=== PATIENT | male | born 1945 | race Caucasian/White ===

== ENCOUNTER 2022-09-01 16:38 | Inpatient (IN) | payer MEDICARE, MEDICAID ==
[2022-09-01] MEDS ORDERED: NOREPINEPHRINE 8 MG/250 ML-D5W 250 ML ONE (16:47)
[2022-09-01] MEDS ORDERED: Heparin 10,000 UNITS/ 10 ML VIAL ONE (16:50)
[2022-09-01] MEDS ORDERED: Aspirin 300 MG Suppository ONE (16:59)
[2022-09-01] MEDS ORDERED: Fentanyl 100 MCG/2 ML VIAL ONE ×2 (17:04→17:12)
[2022-09-01] MEDS ORDERED: Nitroglycerin 100MG/250ML BOT 0 ML ONE (17:04)
[2022-09-01] MEDS ORDERED: Lidocaine 1% (PF) 30 ML VIAL ONE (17:05)
[2022-09-01 17:06] LABS: Actual Bicarbonate (HCO3a) 26.4 mEq/L (22-28); Analyzer IN Cardio ER; Base Excess (BEa) 2.2 mEq/L (-2.0 to +3.0); CO2 Tension 39.6 mmHg (35.0-45.0); Calcium, Ionized (arterial) 1.08 mmol/L (1.12-1.30); Carboxyhemoglobin (COHb) 0.7 gm% (0.0-3.0); O2 Tension (PaO2), arterial 70.2 mmHg (> 70.0); Potassium - ABG Lab 4.29 mmol/L (3.70-5.30); pH, Arterial 7.44 (7.35-7.45)
[2022-09-01 17:07] LABS: Puncture Site RRA
[2022-09-01] MEDS ORDERED: Cefepime 2 GM VIAL ONE (17:10)
[2022-09-01] MEDS ORDERED: Midazolam HCl 2 mg/2 ml Vial ONE (17:12)
[2022-09-01] MEDS ORDERED: Fentanyl CADD 100 ML IV SCH (17:30)
[2022-09-01] MEDS ORDERED: Silver Nitrate Application 1 EACH ONE (17:32)
[2022-09-01 17:42] LABS: #Eosinphils 0.2 thou/uL (0.0-0.7); #Lymphocytes 1.7 thou/uL (1.20-3.40); #Monocytes 0.8 thou/uL (0.11-0.59); #Neutrophils 12.4 thou/uL (1.40-6.50); %Basophils 0.2 % (0.0-1.0); %Eosinophils 1.2 % (0.0-10.0); %Lymphocytes 11.1 % (21.0-51.0); %Monocytes 5.2 % (0.0-10.0); %Neutrophils 82.3 % (42.0-75.0); Hemoglobin 12.6 g/dL (14.0-18.0); Mean Corpuscular HGB CONC 31.8 g/dL (32.0-36.0); Mean Corpuscular Hemoglobin 32.8 pg (27.0-31.0); Mean Platelet Volume 6.4 fL (7.4-10.4); Platelet Count 296 10x3/uL (130-400); RBC Distribution Width 12.7 % (11.5-14.5); Red Blood Cell (RBC) Count 3.85 mill/uL (4.70-6.10)
[2022-09-01] MEDS ORDERED: LORazepam 2 MG/ML SYR.(CARPUJECT) ONE (17:43)
[2022-09-01 17:54] LABS: INR-International Normal Ratio 1.2; Prothrombin Time 15.5 sec (12.0-14.7)
[2022-09-01] MEDS ORDERED: Propofol 1,000 MG/100 ML VIAL IV ONE (17:54)
[2022-09-01 17:58] LABS: ALT (SGPT) 15 U/L (8-55); AST (SGOT) 16 U/L (5-34); Albumin 2.9 g/dL (3.4-4.8); Alkaline Phosphatase 97 U/L (40-110); Anion Gap 12 mmol/L (10-20); BUN (Urea Nitrogen) 13 mg/dL (8.4-25.7); Bilirubin, Total 0.3 mg/dL (0.2-1.2); Calc. Creatinine Clearance 0 mL/min (70-130); Calcium 7.9 mg/dL (7.8-10.44); Carbon Dioxide 29 mmol/L (23-31); Chloride 94 mmol/L (98-107); Estimated GFR 101; Globulin 3.3 g/dL (2.4-3.5); Glucose 127 mg/dL (83-110); Lipase 160 U/L (8-78); Magnesium 1.6 mg/dL (1.6-2.6); Potassium 4.2 mmol/L (3.5-5.1); Protein, Total 6.2 g/dL (5.8-8.1); Sodium 131 mmol/L (136-145)
[2022-09-01 18:25] LABS: SARS-CoV-2 NAA Rapid Test Not Detected (NotDetected)
[2022-09-01] MEDS ORDERED: Heparin 25,000 units/D5W 500 ML IVPB SCH (18:30)
[2022-09-01] MEDS ORDERED: Heparin 10,000 UNITS/ 10 ML VIAL SLOW IVP SCH (18:30)
[2022-09-01 18:32] LABS: CKMB 4.1 ng/mL (0-6.6)
[2022-09-01] MEDS ORDERED: Vancomycin 1 GM in Premix Bag 1 BAG IVPB SCH (18:45)
[2022-09-01] MEDS ORDERED: Propofol BOLUS 1,000 MG/100 ML VIAL IV PRN (19:00)
[2022-09-01] MEDS ORDERED: Morphine CADD 100 ML IVPB SCH (19:00)
[2022-09-01] MEDS ORDERED: DISCONTINUE PREVIOUS NARCOTIC PAIN MEDICATIONS AND BENZODIAZEPINES FS SCH (19:00)
[2022-09-01] MEDS ORDERED: Electrolyte Replacement Protocol 1 EACH IVPB PRN (19:30)
[2022-09-01] MEDS ORDERED: Acetaminophen 650 MG Suppository PR PRN (19:30)
[2022-09-01] MEDS ORDERED: NOREPINEPHRINE 8 MG/250 ML-D5W 250 ML IVPB PRN (19:30)
[2022-09-01] MEDS ORDERED: Acetaminophen 325 MG TAB PO PRN (19:30)
[2022-09-01] MEDS ORDERED: Ondansetron PF 4 MG/2 ML Vial IVP PRN (19:30)
[2022-09-01] MEDS: carBAMazepine SR 300 mg Capsule PO SCH (20:32)
[2022-09-01] MEDS: Sodium Chloride 0.9% 1,000 ML IV SCH (20:33)
[2022-09-01] MEDS: busPIRone HCl 10 MG TAB PO SCH (20:38)
[2022-09-01 21:08] LABS: Lactic Acid 5.1 mmol/L (0.5-2.2)
[2022-09-01 22:01] LABS: Troponin I 1.085 ng/mL (< 0.028)
[2022-09-01] MEDS ORDERED: Sodium Chloride 0.9% 500 ML IVPB SCH (22:30)
[2022-09-02 02:23] LABS: #Eosinphils 0.2 thou/uL (0.0-0.7); #Lymphocytes 1.3 thou/uL (1.20-3.40); #Monocytes 0.8 thou/uL (0.11-0.59); %Basophils 0.2 % (0.0-1.0); %Eosinophils 1.2 % (0.0-10.0); %Monocytes 5.5 % (0.0-10.0); %Neutrophils 84.2 % (42.0-75.0); Hemoglobin 12.1 g/dL (14.0-18.0); Mean Corpuscular HGB CONC 32.7 g/dL (32.0-36.0); Mean Corpuscular Hemoglobin 33.1 pg (27.0-31.0); Mean Platelet Volume 6.2 fL (7.4-10.4); Platelet Count 229 10x3/uL (130-400); RBC Distribution Width 12.7 % (11.5-14.5); Red Blood Cell (RBC) Count 3.65 mill/uL (4.70-6.10); White Blood Cell (WBC) Count 14.2 10x3/uL (4.8-10.8)
[2022-09-02 02:38] LABS: Lactic Acid 2.3 mmol/L (0.5-2.2)
[2022-09-02 03:31] LABS: Anion Gap 14 mmol/L (10-20); BUN (Urea Nitrogen) 18 mg/dL (8.4-25.7); Calc. Creatinine Clearance 227 mL/min (70-130); Calcium 7.7 mg/dL (7.8-10.44); Carbon Dioxide 27 mmol/L (23-31); Chloride 96 mmol/L (98-107); Estimated GFR 103; Glucose 107 mg/dL (83-110); Potassium 4.4 mmol/L (3.5-5.1); Sodium 133 mmol/L (136-145)
[2022-09-02] MEDS: Cefepime 2 GM in Sodium Chloride 0.9% 100 ML IVPB SCH ×2 (05:08→16:38)
[2022-09-02] MEDS: Levothyroxine 150 MCG TAB PO SCH (05:08)
[2022-09-02] MEDS: Propofol 1,000 MG/100 ML VIAL IV PRN ×4 (05:12→21:57)
[2022-09-02 06:49] LABS: Magnesium 1.7 mg/dL (1.6-2.6)
[2022-09-02] MEDS ORDERED: Magnesium 2 GM/50 ML(in water) 2 GM in Premix Bag 1 BAG IVPB SCH (08:00)
[2022-09-02] MEDS: Sodium Chloride 0.9% 1,000 ML IV SCH ×2 (08:23→21:57)
[2022-09-02] MEDS: busPIRone HCl 10 MG TAB PO SCH ×2 (08:50→20:38)
[2022-09-02] MEDS: Aspirin 300 MG Suppository PR SCH ×2 (08:50→11:06)
[2022-09-02] MEDS: VANCOMYCIN 2 GRAM/500 ML BAG 2 GM in Premix Bag 1 BAG IVPB SCH ×2 (08:50→20:36)
[2022-09-02] MEDS: carBAMazepine SR 300 mg Capsule PO SCH ×3 (08:50→20:35)
[2022-09-02] MEDS ORDERED: FLU VACC QS2022-23(65YR UP)/PF 240 MCG/0.7 ML SYRINGE IM ONE (09:00)
[2022-09-02 09:36] LABS: Troponin I 2.017 ng/mL (< 0.028)
[2022-09-02] MEDS ORDERED: Aspirin 325 mg Enteric Coated Tablet PO SCH (09:45)
[2022-09-02] MEDS: Heparin 5,000 UNITS/ML VIAL SC SCH (20:35)
[2022-09-02] MEDS: Famotidine/PF 20 mg/2ml Vial SLOW IVP SCH (20:36)
[2022-09-03] MEDS: Propofol 1,000 MG/100 ML VIAL IV PRN ×2 (03:44→05:27)
[2022-09-03 05:14] LABS: #Eosinphils 0.5 thou/uL (0.0-0.7); #Lymphocytes 1.3 thou/uL (1.20-3.40); #Monocytes 0.6 thou/uL (0.11-0.59); #Neutrophils 10.2 thou/uL (1.40-6.50); %Basophils 0.4 % (0.0-1.0); %Eosinophils 3.7 % (0.0-10.0); %Lymphocytes 10.5 % (21.0-51.0); %Neutrophils 80.3 % (42.0-75.0); Hemoglobin 11.6 g/dL (14.0-18.0); Mean Corpuscular HGB CONC 32.6 g/dL (32.0-36.0); Mean Corpuscular Hemoglobin 32.7 pg (27.0-31.0); Mean Platelet Volume 6.4 fL (7.4-10.4); Platelet Count 239 10x3/uL (130-400); RBC Distribution Width 12.7 % (11.5-14.5); Red Blood Cell (RBC) Count 3.55 mill/uL (4.70-6.10); White Blood Cell (WBC) Count 12.7 10x3/uL (4.8-10.8)
[2022-09-03] MEDS: Levothyroxine 150 MCG TAB PO SCH (05:23)
[2022-09-03] MEDS: Cefepime 2 GM in Sodium Chloride 0.9% 100 ML IVPB SCH (05:23)
[2022-09-03 05:41] LABS: ALT (SGPT) 12 U/L (8-55); AST (SGOT) 15 U/L (5-34); Albumin 2.6 g/dL (3.4-4.8); Alkaline Phosphatase 89 U/L (40-110); Anion Gap 10 mmol/L (10-20); BUN (Urea Nitrogen) 11 mg/dL (8.4-25.7); Bilirubin, Total 0.4 mg/dL (0.2-1.2); Calc. Creatinine Clearance 316 mL/min (70-130); Calcium 7.4 mg/dL (7.8-10.44); Carbon Dioxide 28 mmol/L (23-31); Chloride 98 mmol/L (98-107); Estimated GFR 113; Glucose 87 mg/dL (83-110); Magnesium 2.1 mg/dL (1.6-2.6); Potassium 2.8 mmol/L (3.5-5.1); Protein, Total 5.6 g/dL (5.8-8.1); Sodium 133 mmol/L (136-145)
[2022-09-03] MEDS: Potassium Chloride 40 MEQ in Premix Bag 1 BAG IVPB SCH ×2 (06:29→08:57)
[2022-09-03 08:36] LABS: Vancomycin, Trough 22.3 ug/mL
[2022-09-03] MEDS: Aspirin Chewable 81 MG TAB PO SCH (08:57)
[2022-09-03] MEDS: Heparin 5,000 UNITS/ML VIAL SC SCH ×2 (08:57→20:37)
[2022-09-03] MEDS: busPIRone HCl 10 MG TAB PO SCH ×2 (08:57→20:35)
[2022-09-03] MEDS: Famotidine/PF 20 mg/2ml Vial SLOW IVP SCH ×2 (08:57→20:36)
[2022-09-03] MEDS: carBAMazepine SR 300 mg Capsule PO SCH ×3 (09:39→20:36)
[2022-09-03] MEDS: Scopolamine 1.5 mg/72 hour Patch TOP SCH (09:58)
[2022-09-03] MEDS ORDERED: Piperacillin/Tazobactam 3.375 GM in Sodium Chloride 0.9% 100 ML IVPB SCH (10:45)
[2022-09-03] MEDS ORDERED: Piperacillin/Tazobactam 2.25 GM in Sodium Chloride 0.9% 100 ML IVPB SCH (12:00)
[2022-09-03] MEDS: Midazolam HCl 2 mg/2 ml Vial SLOW IVP PRN (12:54)
[2022-09-03 14:55] LABS: Potassium 4.5 mmol/L (3.5-5.1)
[2022-09-03] MEDS: Piperacillin/Tazobactam 3.375 GM in Sodium Chloride 0.9% 100 ML IVPB SCH ×2 (15:07→20:36)
[2022-09-03] MEDS: Sodium Chloride 0.9% 1,000 ML IV SCH (15:08)
[2022-09-03 18:50] LABS: Hemoglobin 11.6 g/dL (14.0-18.0); Platelet Count 228 10x3/uL (130-400)
[2022-09-04] MEDS: Sodium Chloride 0.9% 1,000 ML IV SCH (03:24)
[2022-09-04 04:30] LABS: #Basophils 0.1 thou/uL (0.0-0.2); #Eosinphils 0.4 thou/uL (0.0-0.7); #Lymphocytes 1.2 thou/uL (1.20-3.40); #Monocytes 0.5 thou/uL (0.11-0.59); %Basophils 0.5 % (0.0-1.0); %Eosinophils 3.4 % (0.0-10.0); %Lymphocytes 10.7 % (21.0-51.0); %Monocytes 4.2 % (0.0-10.0); %Neutrophils 81.1 % (42.0-75.0); Hemoglobin 11.1 g/dL (14.0-18.0); Mean Corpuscular HGB CONC 32.7 g/dL (32.0-36.0); Mean Platelet Volume 6.6 fL (7.4-10.4); Platelet Count 224 10x3/uL (130-400); RBC Distribution Width 12.6 % (11.5-14.5); Red Blood Cell (RBC) Count 3.36 mill/uL (4.70-6.10)
[2022-09-04 04:59] LABS: ALT (SGPT) 9 U/L (8-55); AST (SGOT) 11 U/L (5-34); Albumin 2.4 g/dL (3.4-4.8); Alkaline Phosphatase 81 U/L (40-110); Anion Gap 13 mmol/L (10-20); BUN (Urea Nitrogen) 8 mg/dL (8.4-25.7); Bilirubin, Total 0.4 mg/dL (0.2-1.2); Calc. Creatinine Clearance 316 mL/min (70-130); Calcium 7.6 mg/dL (7.8-10.44); Carbon Dioxide 24 mmol/L (23-31); Chloride 103 mmol/L (98-107); Estimated GFR 113; Globulin 3.2 g/dL (2.4-3.5); Glucose 78 mg/dL (83-110); Magnesium 2.2 mg/dL (1.6-2.6); Phosphorus 2.2 mg/dL (2.3-4.7); Potassium 3.8 mmol/L (3.5-5.1); Protein, Total 5.6 g/dL (5.8-8.1); Sodium 136 mmol/L (136-145)
[2022-09-04] MEDS: Levothyroxine 150 MCG TAB PO SCH (07:03)
[2022-09-04] MEDS: Piperacillin/Tazobactam 3.375 GM in Sodium Chloride 0.9% 100 ML IVPB SCH ×3 (07:03→21:04)
[2022-09-04] MEDS: Heparin 5,000 UNITS/ML VIAL SC SCH ×2 (07:55→21:04)
[2022-09-04] MEDS: busPIRone HCl 10 MG TAB PO SCH ×2 (07:56→21:04)
[2022-09-04] MEDS: Famotidine/PF 20 mg/2ml Vial SLOW IVP SCH ×2 (07:56→21:04)
[2022-09-04] MEDS: carBAMazepine SR 300 mg Capsule PO SCH ×3 (07:56→21:04)
[2022-09-04] MEDS: Aspirin Chewable 81 MG TAB PO SCH (07:56)
[2022-09-04] MEDS ORDERED: Furosemide 40 MG/4 ML VIAL SLOW IVP SCH (08:30)
[2022-09-04] MEDS: Albumin 25% 25 GM/100 ML BOT IVPB SCH ×3 (11:00→23:04)
[2022-09-04] MEDS: Furosemide 40 MG/4 ML VIAL SLOW IVP SCH (13:49)
[2022-09-04] MEDS: Midazolam HCl 2 mg/2 ml Vial SLOW IVP PRN (15:23)
[2022-09-04 23:38] LABS: Bacteria/HPF None Seen HPF (None Seen); Bilirubin Negative (Negative); Blood, Urine 1+ (Negative); CAUTI Indications for Culture Alt mental st,lethar; Clarity Turbid (Clear); Glucose, Urine (Dipstick) Normal (Negative); Ketone, Urine 80 mg/dL (Negative); Leukocyte 500 Leu/uL (Negative); Nitrite Negative (Negative); Protein, Urine (Dipstick) 30 mg/dL (Neg-Trace); Squamous Epithelial None Seen HPF (0-3); Urobilinogen Normal mg/dL (Less than 2); WBC/HPF Greater than 50 HPF (0-3); pH, Urine 5.5 (5.0-9.0)
[2022-09-04 23:42] LABS: Urine Culture Reflex Yes Yes
[2022-09-05 04:00] LABS: #Eosinphils 0.3 thou/uL (0.0-0.7); #Lymphocytes 0.9 thou/uL (1.20-3.40); #Monocytes 0.4 thou/uL (0.11-0.59); #Neutrophils 7.2 thou/uL (1.40-6.50); %Basophils 0.5 % (0.0-1.0); %Eosinophils 3.9 % (0.0-10.0); %Lymphocytes 9.7 % (21.0-51.0); Hemoglobin 10.4 g/dL (14.0-18.0); Mean Corpuscular HGB CONC 33.1 g/dL (32.0-36.0); Mean Corpuscular Hemoglobin 33.2 pg (27.0-31.0); Mean Platelet Volume 6.8 fL (7.4-10.4); Platelet Count 235 10x3/uL (130-400); RBC Distribution Width 12.7 % (11.5-14.5); Red Blood Cell (RBC) Count 3.13 mill/uL (4.70-6.10); White Blood Cell (WBC) Count 8.9 10x3/uL (4.8-10.8)
[2022-09-05 04:09] LABS: ALT (SGPT) 9 U/L (8-55); AST (SGOT) 10 U/L (5-34); Albumin 3.4 g/dL (3.4-4.8); Alkaline Phosphatase 69 U/L (40-110); Anion Gap 15 mmol/L (10-20); BUN (Urea Nitrogen) 6 mg/dL (8.4-25.7); Bilirubin, Total 0.5 mg/dL (0.2-1.2); Calc. Creatinine Clearance 295 mL/min (70-130); Carbon Dioxide 27 mmol/L (23-31); Chloride 99 mmol/L (98-107); Estimated GFR 111; Globulin 2.7 g/dL (2.4-3.5); Glucose 109 mg/dL (83-110); Potassium 2.7 mmol/L (3.5-5.1); Protein, Total 6.1 g/dL (5.8-8.1); Sodium 138 mmol/L (136-145)
[2022-09-05] MEDS: Furosemide 40 MG/4 ML VIAL SLOW IVP SCH ×2 (05:32→13:38)
[2022-09-05] MEDS: Albumin 25% 25 GM/100 ML BOT IVPB SCH (05:32)
[2022-09-05] MEDS: Piperacillin/Tazobactam 3.375 GM in Sodium Chloride 0.9% 100 ML IVPB SCH ×3 (05:32→21:16)
[2022-09-05] MEDS: Levothyroxine 150 MCG TAB PO SCH (05:32)
[2022-09-05] MEDS ORDERED: Dexmedetomidine 1,000 MCG in Sodium Chloride 0.9% 250 ML 240 ML IVPB SCH (06:45)
[2022-09-05] MEDS: Aspirin Chewable 81 MG TAB PO SCH (08:09)
[2022-09-05] MEDS: Heparin 5,000 UNITS/ML VIAL SC SCH ×2 (08:09→20:52)
[2022-09-05] MEDS: busPIRone HCl 10 MG TAB PO SCH ×2 (08:10→20:50)
[2022-09-05] MEDS: Famotidine/PF 20 mg/2ml Vial SLOW IVP SCH ×2 (08:10→20:50)
[2022-09-05] MEDS: carBAMazepine SR 300 mg Capsule PO SCH ×3 (09:30→22:59)
[2022-09-05] MEDS ORDERED: Potassium Chloride 40 MEQ in Premix Bag 1 BAG IVPB SCH ×2 (09:30→11:00)
[2022-09-05] MEDS: Morphine 4 MG/ML VIAL SLOW IVP PRN ×2 (10:05→16:03)
[2022-09-05 10:07] LABS: Actual Bicarbonate (HCO3a) 31.9 mEq/L (22-28); Calcium, Ionized (arterial) 1.07 mmol/L (1.12-1.30); Hemoglobin (Hb) 12.1 g/dL (14.0-18.0); O2 Tension (PaO2), arterial 88.3 mmHg (> 70.0); Potassium - ABG Lab 2.55 mmol/L (3.70-5.30); pH, Arterial 7.45 (7.35-7.45)
[2022-09-05 10:08] LABS: Puncture Site RRA
[2022-09-05 11:47] LABS: Actual Bicarbonate (HCO3a) 32.1 mEq/L (22-28); Base Excess (BEa) 6.6 mEq/L (-2.0 to +3.0); CO2 Tension 50.1 mmHg (35.0-45.0); Calcium, Ionized (arterial) 1.06 mmol/L (1.12-1.30); Carboxyhemoglobin (COHb) 1.2 gm% (0.0-3.0); Hemoglobin (Hb) 12.5 g/dL (14.0-18.0); Potassium - ABG Lab 3.38 mmol/L (3.70-5.30); pH, Arterial 7.43 (7.35-7.45)
[2022-09-05 11:48] LABS: ALV-art Gradient 105.835 mmHg (0-20); O2 Tension (PaO2), arterial 59.7 mmHg (> 70.0); Puncture Site RRA
[2022-09-05] MEDS ORDERED: hydrALAZINE 20 MG/ML VIAL SLOW IVP PRN (12:40)
[2022-09-05] MEDS ORDERED: Metoprolol Tartrate 5 MG/5 ML VIAL IVP PRN ×2 (12:42→13:03)
[2022-09-05] MEDS: hydrALAZINE 20 MG/ML VIAL SLOW IVP PRN (13:35)
[2022-09-05 17:06] LABS: Hemoglobin 12.8 g/dL (14.0-18.0); Platelet Count 291 10x3/uL (130-400)
[2022-09-05 17:26] LABS: Potassium 3.3 mmol/L (3.5-5.1)
[2022-09-05] MEDS ORDERED: cloNIDine 0.2mg/24 Hour PATCH TD SCH (18:45)
[2022-09-05] MEDS ORDERED: Potassium Chloride 20 MEQ TAB PER TUBE SCH (18:45)
[2022-09-05] MEDS: cloNIDine 0.2mg/24 Hour PATCH TD SCH (18:56)
[2022-09-05] MEDS: Fosphenytoin Sodium 100 MG in Sodium Chloride 0.9% 50 ML IVPB SCH (20:52)
[2022-09-05 22:47] LABS: Potassium 3.2 mmol/L (3.5-5.1)
[2022-09-05] MEDS ORDERED: Potassium Bicarbonate/Cit Ac 20 MEQ TAB PER TUBE SCH (23:30)
[2022-09-06] MEDS: Morphine 4 MG/ML VIAL SLOW IVP PRN (00:02)
[2022-09-06 04:01] LABS: #Eosinphils 0.2 thou/uL (0.0-0.7); #Lymphocytes 1.1 thou/uL (1.20-3.40); #Monocytes 0.9 thou/uL (0.11-0.59); %Basophils 0.1 % (0.0-1.0); %Eosinophils 1.5 % (0.0-10.0); %Lymphocytes 7.6 % (21.0-51.0); %Monocytes 6.2 % (0.0-10.0); %Neutrophils 84.6 % (42.0-75.0); Mean Corpuscular HGB CONC 32.1 g/dL (32.0-36.0); Mean Corpuscular Hemoglobin 32.4 pg (27.0-31.0); Mean Platelet Volume 6.3 fL (7.4-10.4); Platelet Count 282 10x3/uL (130-400); RBC Distribution Width 12.8 % (11.5-14.5); White Blood Cell (WBC) Count 14.2 10x3/uL (4.8-10.8)
[2022-09-06 04:26] LABS: Anion Gap 16 mmol/L (10-20); BUN (Urea Nitrogen) 5 mg/dL (8.4-25.7); Calc. Creatinine Clearance 240 mL/min (70-130); Carbon Dioxide 33 mmol/L (23-31); Chloride 98 mmol/L (98-107); Estimated GFR 106; Glucose 107 mg/dL (83-110); Magnesium 1.7 mg/dL (1.6-2.6); Potassium 3.6 mmol/L (3.5-5.1); Sodium 143 mmol/L (136-145)
[2022-09-06] MEDS: Piperacillin/Tazobactam 3.375 GM in Sodium Chloride 0.9% 100 ML IVPB SCH ×3 (06:02→21:16)
[2022-09-06] MEDS: Levothyroxine 150 MCG TAB PO SCH (06:02)
[2022-09-06] MEDS: Furosemide 40 MG/4 ML VIAL SLOW IVP SCH ×2 (06:02→13:59)
[2022-09-06] MEDS ORDERED: Magnesium 2 GM/50 ML(in water) 2 GM in Premix Bag 1 BAG IVPB SCH (08:00)
[2022-09-06] MEDS: hydrALAZINE 20 MG/ML VIAL SLOW IVP PRN ×2 (08:18→14:33)
[2022-09-06] MEDS ORDERED: Hydrochlorothiazide 25 MG TAB PO SCH (09:00)
[2022-09-06] MEDS: PHOS-NAK 1 PKT PACK PO SCH ×2 (10:57→14:01)
[2022-09-06] MEDS: Aspirin Chewable 81 MG TAB PO SCH (10:58)
[2022-09-06] MEDS: Famotidine/PF 20 mg/2ml Vial SLOW IVP SCH ×2 (10:58→20:53)
[2022-09-06] MEDS: Metoprolol Tartrate 50 MG TAB PO SCH ×2 (10:58→20:54)
[2022-09-06] MEDS: carBAMazepine SR 300 mg Capsule PO SCH ×3 (10:58→20:53)
[2022-09-06] MEDS: Heparin 5,000 UNITS/ML VIAL SC SCH ×2 (10:59→20:54)
[2022-09-06] MEDS: Scopolamine 1.5 mg/72 hour Patch TOP SCH (10:59)
[2022-09-06] MEDS: busPIRone HCl 10 MG TAB PO SCH ×2 (11:09→20:53)
[2022-09-06] MEDS: Fosphenytoin Sodium 100 MG in Sodium Chloride 0.9% 50 ML IVPB SCH ×2 (11:09→20:53)
[2022-09-07] MEDS ORDERED: Acetaminophen 650 MG/20.3 ML UDCUP PER TUBE PRN (02:56)
[2022-09-07] MEDS: Furosemide 40 MG/4 ML VIAL SLOW IVP SCH ×2 (05:20→14:22)
[2022-09-07] MEDS: Piperacillin/Tazobactam 3.375 GM in Sodium Chloride 0.9% 100 ML IVPB SCH ×3 (05:20→21:05)
[2022-09-07] MEDS: Levothyroxine 150 MCG TAB PER TUBE SCH (05:20)
[2022-09-07 06:04] LABS: #Eosinphils 0.3 thou/uL (0.0-0.7); #Lymphocytes 1.2 thou/uL (1.20-3.40); #Neutrophils 8.4 thou/uL (1.40-6.50); %Basophils 0.4 % (0.0-1.0); %Eosinophils 2.7 % (0.0-10.0); %Lymphocytes 11.1 % (21.0-51.0); %Monocytes 8.9 % (0.0-10.0); Mean Corpuscular Hemoglobin 32.2 pg (27.0-31.0); Mean Platelet Volume 6.9 fL (7.4-10.4); Platelet Count 274 10x3/uL (130-400); RBC Distribution Width 13.2 % (11.5-14.5); Red Blood Cell (RBC) Count 4.05 mill/uL (4.70-6.10); White Blood Cell (WBC) Count 10.9 10x3/uL (4.8-10.8)
[2022-09-07 06:33] LABS: Anion Gap 17 mmol/L (10-20); BUN (Urea Nitrogen) 7 mg/dL (8.4-25.7); Calc. Creatinine Clearance 231 mL/min (70-130); Calcium 9.3 mg/dL (7.8-10.44); Carbon Dioxide 36 mmol/L (23-31); Chloride 94 mmol/L (98-107); Estimated GFR 105; Glucose 125 mg/dL (83-110); Potassium 3.2 mmol/L (3.5-5.1); Sodium 144 mmol/L (136-145)
[2022-09-07] MEDS ORDERED: Potassium Bicarbonate/Cit Ac 20 MEQ TAB PER TUBE SCH ×2 (08:00→14:30)
[2022-09-07] MEDS: busPIRone HCl 10 MG TAB PER TUBE SCH ×2 (09:12→20:18)
[2022-09-07] MEDS: Heparin 5,000 UNITS/ML VIAL SC SCH ×2 (09:12→20:19)
[2022-09-07] MEDS: Aspirin Chewable 81 MG TAB PER TUBE SCH (09:12)
[2022-09-07] MEDS: Metoprolol Tartrate 50 MG TAB PER TUBE SCH ×2 (09:12→20:18)
[2022-09-07] MEDS: Hydrochlorothiazide 25 MG TAB PER TUBE SCH (09:12)
[2022-09-07] MEDS: carBAMazepine SR 300 mg Capsule PO SCH ×3 (09:12→20:18)
[2022-09-07] MEDS: Famotidine/PF 20 mg/2ml Vial SLOW IVP SCH ×2 (09:12→20:19)
[2022-09-07] MEDS: Fosphenytoin Sodium 100 MG in Sodium Chloride 0.9% 50 ML IVPB SCH ×2 (09:33→20:55)
[2022-09-07 13:14] LABS: Potassium 3.2 mmol/L (3.5-5.1)
[2022-09-07 19:24] LABS: Hemoglobin 12.7 g/dL (14.0-18.0); Platelet Count 294 10x3/uL (130-400)
[2022-09-08] MEDS: Piperacillin/Tazobactam 3.375 GM in Sodium Chloride 0.9% 100 ML IVPB SCH ×3 (05:14→22:04)
[2022-09-08] MEDS: Furosemide 40 MG/4 ML VIAL SLOW IVP SCH ×2 (05:14→13:52)
[2022-09-08] MEDS: Levothyroxine 150 MCG TAB PER TUBE SCH (05:15)
[2022-09-08 06:24] LABS: #Eosinphils 0.3 thou/uL (0.0-0.7); #Lymphocytes 1.6 thou/uL (1.20-3.40); #Neutrophils 6.2 thou/uL (1.40-6.50); %Basophils 0.5 % (0.0-1.0); %Eosinophils 3.5 % (0.0-10.0); %Lymphocytes 17.1 % (21.0-51.0); %Monocytes 10.5 % (0.0-10.0); %Neutrophils 68.5 % (42.0-75.0); Mean Corpuscular HGB CONC 32.6 g/dL (32.0-36.0); Mean Corpuscular Hemoglobin 33.2 pg (27.0-31.0); Mean Platelet Volume 6.4 fL (7.4-10.4); Platelet Count 295 10x3/uL (130-400); Red Blood Cell (RBC) Count 3.93 mill/uL (4.70-6.10); White Blood Cell (WBC) Count 9.1 10x3/uL (4.8-10.8)
[2022-09-08 06:46] LABS: BUN (Urea Nitrogen) 13 mg/dL (8.4-25.7); Calc. Creatinine Clearance 235 mL/min (70-130); Calcium 9.8 mg/dL (7.8-10.44); Estimated GFR 106; Glucose 110 mg/dL (83-110)
[2022-09-08 06:56] LABS: Anion Gap 20 mmol/L (10-20); Carbon Dioxide 38 mmol/L (23-31); Chloride 91 mmol/L (98-107); Potassium 3.1 mmol/L (3.5-5.1); Sodium 146 mmol/L (136-145)
[2022-09-08] MEDS: Aspirin Chewable 81 MG TAB PER TUBE SCH ×2 (08:33→12:07)
[2022-09-08] MEDS: carBAMazepine SR 300 mg Capsule PO SCH ×4 (08:33→21:59)
[2022-09-08] MEDS: Hydrochlorothiazide 25 MG TAB PER TUBE SCH ×2 (08:33→12:08)
[2022-09-08] MEDS: Famotidine/PF 20 mg/2ml Vial SLOW IVP SCH ×2 (08:33→21:30)
[2022-09-08] MEDS: Metoprolol Tartrate 50 MG TAB PER TUBE SCH ×3 (08:33→21:59)
[2022-09-08] MEDS: busPIRone HCl 10 MG TAB PER TUBE SCH ×3 (08:34→21:59)
[2022-09-08] MEDS: Heparin 5,000 UNITS/ML VIAL SC SCH ×2 (09:30→21:30)
[2022-09-08] MEDS: Fosphenytoin Sodium 100 MG in Sodium Chloride 0.9% 50 ML IVPB SCH ×2 (11:28→21:45)
[2022-09-08] MEDS ORDERED: Potassium Bicarbonate/Cit Ac 20 MEQ TAB PER TUBE SCH ×2 (11:45→23:00)
[2022-09-08] MEDS ORDERED: Haloperidol Lactate 5 MG/ML VIAL IM SCH (12:15)
[2022-09-08] MEDS: Potassium Chloride 20 MEQ in Premix Bag 1 BAG IVPB SCH ×2 (13:51→14:05)
[2022-09-08 19:44] LABS: Potassium 3.4 mmol/L (3.5-5.1)
[2022-09-08] MEDS: hydrALAZINE 20 MG/ML VIAL SLOW IVP PRN (22:04)
[2022-09-09] MEDS: Potassium Chloride 20 MEQ in Premix Bag 1 BAG IVPB SCH ×2 (01:04→03:09)
[2022-09-09] MEDS: Piperacillin/Tazobactam 3.375 GM in Sodium Chloride 0.9% 100 ML IVPB SCH ×3 (05:30→21:22)
[2022-09-09] MEDS: Furosemide 40 MG/4 ML VIAL SLOW IVP SCH ×2 (05:30→12:40)
[2022-09-09] MEDS: Levothyroxine 150 MCG TAB PER TUBE SCH (05:30)
[2022-09-09] MEDS: Famotidine/PF 20 mg/2ml Vial SLOW IVP SCH ×2 (10:29→20:07)
[2022-09-09] MEDS: Heparin 5,000 UNITS/ML VIAL SC SCH ×2 (10:30→20:07)
[2022-09-09] MEDS: Hydrochlorothiazide 25 MG TAB PER TUBE SCH (10:33)
[2022-09-09] MEDS: carBAMazepine SR 300 mg Capsule PO SCH ×3 (10:33→21:21)
[2022-09-09] MEDS: Metoprolol Tartrate 50 MG TAB PER TUBE SCH ×2 (10:33→21:22)
[2022-09-09] MEDS: Aspirin Chewable 81 MG TAB PER TUBE SCH (10:33)
[2022-09-09] MEDS: busPIRone HCl 10 MG TAB PER TUBE SCH ×2 (10:33→21:21)
[2022-09-09] MEDS: Fosphenytoin Sodium 100 MG in Sodium Chloride 0.9% 50 ML IVPB SCH ×2 (12:39→20:06)
[2022-09-09] MEDS: Scopolamine 1.5 mg/72 hour Patch TOP SCH (12:39)
[2022-09-09 19:04] LABS: Hemoglobin 14.3 g/dL (14.0-18.0); Platelet Count 276 10x3/uL (130-400)
[2022-09-10] MEDS: Piperacillin/Tazobactam 3.375 GM in Sodium Chloride 0.9% 100 ML IVPB SCH ×3 (05:13→21:30)
[2022-09-10] MEDS: Levothyroxine 150 MCG TAB PER TUBE SCH (05:13)
[2022-09-10] MEDS: Furosemide 40 MG/4 ML VIAL SLOW IVP SCH ×2 (05:13→14:15)
[2022-09-10] MEDS: Aspirin Chewable 81 MG TAB PER TUBE SCH (09:10)
[2022-09-10] MEDS: Heparin 5,000 UNITS/ML VIAL SC SCH ×2 (09:10→21:29)
[2022-09-10] MEDS: Famotidine/PF 20 mg/2ml Vial SLOW IVP SCH ×2 (09:10→21:29)
[2022-09-10] MEDS: carBAMazepine SR 300 mg Capsule PO SCH ×3 (09:10→21:30)
[2022-09-10] MEDS: Fosphenytoin Sodium 100 MG in Sodium Chloride 0.9% 50 ML IVPB SCH ×2 (09:10→21:23)
[2022-09-10] MEDS: Metoprolol Tartrate 50 MG TAB PER TUBE SCH ×2 (09:11→21:30)
[2022-09-10] MEDS: busPIRone HCl 10 MG TAB PER TUBE SCH ×2 (09:11→21:30)
[2022-09-10] MEDS: Hydrochlorothiazide 25 MG TAB PER TUBE SCH (09:11)
[2022-09-11] MEDS: Levothyroxine 150 MCG TAB PER TUBE SCH (05:50)
[2022-09-11] MEDS: Piperacillin/Tazobactam 3.375 GM in Sodium Chloride 0.9% 100 ML IVPB SCH ×3 (05:50→22:56)
[2022-09-11] MEDS: Furosemide 40 MG/4 ML VIAL SLOW IVP SCH ×2 (05:50→15:24)
[2022-09-11] MEDS: Aspirin Chewable 81 MG TAB PER TUBE SCH (08:59)
[2022-09-11] MEDS: Hydrochlorothiazide 25 MG TAB PER TUBE SCH (09:00)
[2022-09-11] MEDS: Metoprolol Tartrate 50 MG TAB PER TUBE SCH ×2 (09:00→21:58)
[2022-09-11] MEDS: carBAMazepine SR 300 mg Capsule PO SCH ×3 (09:00→21:58)
[2022-09-11] MEDS: Famotidine/PF 20 mg/2ml Vial SLOW IVP SCH ×2 (09:00→21:58)
[2022-09-11] MEDS: Heparin 5,000 UNITS/ML VIAL SC SCH ×2 (09:00→21:58)
[2022-09-11] MEDS: busPIRone HCl 10 MG TAB PER TUBE SCH ×2 (09:00→21:58)
[2022-09-11] MEDS: Fosphenytoin Sodium 100 MG in Sodium Chloride 0.9% 50 ML IVPB SCH ×2 (13:04→21:58)
[2022-09-11 20:14] LABS: Platelet Count 302 10x3/uL (130-400)
[2022-09-12] MEDS: Piperacillin/Tazobactam 3.375 GM in Sodium Chloride 0.9% 100 ML IVPB SCH ×3 (06:03→21:34)
[2022-09-12] MEDS: Levothyroxine 150 MCG TAB PER TUBE SCH (06:04)
[2022-09-12] MEDS: Furosemide 40 MG/4 ML VIAL SLOW IVP SCH ×2 (06:04→14:51)
[2022-09-12 06:56] LABS: #Basophils 0.1 thou/uL (0.0-0.2); #Eosinphils 0.4 thou/uL (0.0-0.7); #Lymphocytes 1.8 thou/uL (1.20-3.40); #Monocytes 0.8 thou/uL (0.11-0.59); #Neutrophils 8.7 thou/uL (1.40-6.50); %Basophils 0.7 % (0.0-1.0); %Eosinophils 3.2 % (0.0-10.0); %Lymphocytes 15.3 % (21.0-51.0); %Monocytes 7.1 % (0.0-10.0); %Neutrophils 73.7 % (42.0-75.0); Hemoglobin 13.2 g/dL (14.0-18.0); Mean Corpuscular HGB CONC 30.2 g/dL (32.0-36.0); Mean Corpuscular Hemoglobin 31.7 pg (27.0-31.0); Mean Platelet Volume 6.4 fL (7.4-10.4); Platelet Count 297 10x3/uL (130-400); RBC Distribution Width 13.5 % (11.5-14.5); Red Blood Cell (RBC) Count 4.16 mill/uL (4.70-6.10); White Blood Cell (WBC) Count 11.8 10x3/uL (4.8-10.8)
[2022-09-12 07:11] LABS: BUN (Urea Nitrogen) 22 mg/dL (8.4-25.7); Calc. Creatinine Clearance 197 mL/min (70-130); Calcium 9.7 mg/dL (7.8-10.44); Estimated GFR 101; Glucose 103 mg/dL (83-110)
[2022-09-12 07:14] LABS: Carbon Dioxide Greater than 37 mmol/L (23-31); Chloride 98 mmol/L (98-107); Potassium 2.7 mmol/L (3.5-5.1); Sodium 154 mmol/L (136-145)
[2022-09-12] MEDS ORDERED: cloNIDine 0.2mg/24 Hour PATCH TD SCH (09:00)
[2022-09-12] MEDS: Fosphenytoin Sodium 100 MG in Sodium Chloride 0.9% 50 ML IVPB SCH (09:30)
[2022-09-12] MEDS: carBAMazepine SR 300 mg Capsule PO SCH ×3 (09:31→21:12)
[2022-09-12] MEDS: Famotidine/PF 20 mg/2ml Vial SLOW IVP SCH ×2 (09:31→21:11)
[2022-09-12] MEDS: Heparin 5,000 UNITS/ML VIAL SC SCH ×2 (09:31→21:11)
[2022-09-12] MEDS: Hydrochlorothiazide 25 MG TAB PER TUBE SCH (09:31)
[2022-09-12] MEDS: Potassium Chloride 30 MEQ in Sodium Chloride 0.9% 1,000 ML IV SCH ×2 (09:31→21:11)
[2022-09-12] MEDS: busPIRone HCl 10 MG TAB PER TUBE SCH ×2 (09:31→21:11)
[2022-09-12] MEDS: Metoprolol Tartrate 50 MG TAB PER TUBE SCH ×2 (09:31→21:12)
[2022-09-12] MEDS: Aspirin Chewable 81 MG TAB PER TUBE SCH (09:31)
[2022-09-12] MEDS: Scopolamine 1.5 mg/72 hour Patch TOP SCH (09:32)
[2022-09-12] MEDS: Potassium Chloride 20 MEQ TAB PO SCH ×2 (09:34→12:00)
[2022-09-12 14:18] LABS: BUN (Urea Nitrogen) 22 mg/dL (8.4-25.7); Calc. Creatinine Clearance 204 mL/min (70-130); Calcium 9.5 mg/dL (7.8-10.44); Estimated GFR 102; Glucose 96 mg/dL (83-110)
[2022-09-12 14:28] LABS: Anion Gap 20 mmol/L (10-20); Carbon Dioxide 34 mmol/L (23-31); Chloride 99 mmol/L (98-107); Potassium 3.3 mmol/L (3.5-5.1); Sodium 150 mmol/L (136-145)
[2022-09-12] MEDS: cloNIDine 0.2mg/24 Hour PATCH TD SCH (18:42)
[2022-09-12] MEDS ORDERED: Potassium Chloride 20 MEQ TAB PO SCH (22:00)
[2022-09-13] MEDS: Fosphenytoin Sodium 100 MG in Sodium Chloride 0.9% 50 ML IVPB SCH ×3 (01:05→20:52)
[2022-09-13] MEDS: Potassium Chloride 30 MEQ in Sodium Chloride 0.9% 1,000 ML IV SCH (04:35)
[2022-09-13] MEDS: Levothyroxine 150 MCG TAB PER TUBE SCH (05:52)
[2022-09-13] MEDS: Furosemide 40 MG/4 ML VIAL SLOW IVP SCH ×2 (05:52→14:28)
[2022-09-13] MEDS: Piperacillin/Tazobactam 3.375 GM in Sodium Chloride 0.9% 100 ML IVPB SCH ×3 (05:52→21:40)
[2022-09-13 07:16] LABS: #Basophils 0.1 thou/uL (0.0-0.2); #Eosinphils 0.6 thou/uL (0.0-0.7); #Lymphocytes 1.8 thou/uL (1.20-3.40); #Monocytes 0.9 thou/uL (0.11-0.59); #Neutrophils 8.3 thou/uL (1.40-6.50); %Basophils 0.6 % (0.0-1.0); %Lymphocytes 15.5 % (21.0-51.0); %Monocytes 7.6 % (0.0-10.0); %Neutrophils 71.3 % (42.0-75.0); Hemoglobin 14.7 g/dL (14.0-18.0); Mean Corpuscular HGB CONC 30.2 g/dL (32.0-36.0); Mean Corpuscular Hemoglobin 32.2 pg (27.0-31.0); Mean Platelet Volume 8.3 fL (7.4-10.4); Platelet Count 187 10x3/uL (130-400); RBC Distribution Width 13.8 % (11.5-14.5); Red Blood Cell (RBC) Count 4.56 mill/uL (4.70-6.10); White Blood Cell (WBC) Count 11.6 10x3/uL (4.8-10.8)
[2022-09-13 07:49] LABS: Anion Gap 18 mmol/L (10-20); BUN (Urea Nitrogen) 18 mg/dL (8.4-25.7); Calc. Creatinine Clearance 200 mL/min (70-130); Calcium 9.5 mg/dL (7.8-10.44); Carbon Dioxide 29 mmol/L (23-31); Chloride 109 mmol/L (98-107); Estimated GFR 102; Glucose 87 mg/dL (83-110); Sodium 151 mmol/L (136-145)
[2022-09-13] MEDS ORDERED: Sodium Chloride 0.45% 1,000 ML IV SCH (09:00)
[2022-09-13] MEDS: Hydrochlorothiazide 25 MG TAB PER TUBE SCH (09:27)
[2022-09-13] MEDS: Heparin 5,000 UNITS/ML VIAL SC SCH ×2 (09:27→20:53)
[2022-09-13] MEDS: Aspirin Chewable 81 MG TAB PER TUBE SCH (09:27)
[2022-09-13] MEDS: busPIRone HCl 10 MG TAB PER TUBE SCH ×2 (09:27→20:53)
[2022-09-13] MEDS: Famotidine/PF 20 mg/2ml Vial SLOW IVP SCH ×2 (09:27→20:53)
[2022-09-13] MEDS: carBAMazepine SR 300 mg Capsule PO SCH ×3 (09:27→20:53)
[2022-09-13] MEDS: Metoprolol Tartrate 50 MG TAB PER TUBE SCH ×2 (09:27→20:53)
[2022-09-13 14:44] VITALS: BMI 35.6
[2022-09-13 14:49] LABS: Anion Gap 16 mmol/L (10-20); BUN (Urea Nitrogen) 19 mg/dL (8.4-25.7); Calc. Creatinine Clearance 190 mL/min (70-130); Calcium 9.7 mg/dL (7.8-10.44); Carbon Dioxide 33 mmol/L (23-31); Chloride 108 mmol/L (98-107); Estimated GFR 101; Glucose 107 mg/dL (83-110); Potassium 4.5 mmol/L (3.5-5.1); Sodium 152 mmol/L (136-145)
[2022-09-13] MEDS: Dextrose 5% in Water 1,000 ML IV SCH (14:58)
[2022-09-13 18:45] LABS: Hemoglobin 13.8 g/dL (14.0-18.0); Platelet Count 283 10x3/uL (130-400)
[2022-09-14] MEDS: Dextrose 5% in Water 1,000 ML IV SCH ×3 (02:18→21:08)
[2022-09-14] MEDS: Piperacillin/Tazobactam 3.375 GM in Sodium Chloride 0.9% 100 ML IVPB SCH ×3 (05:09→21:08)
[2022-09-14] MEDS: Levothyroxine 150 MCG TAB PER TUBE SCH (05:24)
[2022-09-14] MEDS: Furosemide 40 MG/4 ML VIAL SLOW IVP SCH ×2 (05:24→13:41)
[2022-09-14 05:49] LABS: #Basophils 0.1 thou/uL (0.0-0.2); #Eosinphils 0.5 thou/uL (0.0-0.7); #Lymphocytes 1.5 thou/uL (1.20-3.40); #Monocytes 0.7 thou/uL (0.11-0.59); #Neutrophils 8.3 thou/uL (1.40-6.50); %Eosinophils 4.1 % (0.0-10.0); %Lymphocytes 13.9 % (21.0-51.0); %Monocytes 6.5 % (0.0-10.0); %Neutrophils 74.5 % (42.0-75.0); Hemoglobin 12.7 g/dL (14.0-18.0); Mean Corpuscular HGB CONC 31.8 g/dL (32.0-36.0); Mean Corpuscular Hemoglobin 33.7 pg (27.0-31.0); Mean Platelet Volume 7.2 fL (7.4-10.4); Platelet Count 247 10x3/uL (130-400); RBC Distribution Width 13.4 % (11.5-14.5); Red Blood Cell (RBC) Count 3.76 mill/uL (4.70-6.10); White Blood Cell (WBC) Count 11.1 10x3/uL (4.8-10.8)
[2022-09-14 06:17] LABS: BUN (Urea Nitrogen) 20 mg/dL (8.4-25.7); Calc. Creatinine Clearance 205 mL/min (70-130); Estimated GFR 103; Glucose 129 mg/dL (83-110)
[2022-09-14 06:21] LABS: Carbon Dioxide Greater than 37 mmol/L (23-31); Chloride 107 mmol/L (98-107); Sodium 154 mmol/L (136-145)
[2022-09-14] MEDS ORDERED: Potassium Chloride 20 MEQ TAB PO SCH (08:00)
[2022-09-14] MEDS: Fosphenytoin Sodium 100 MG in Sodium Chloride 0.9% 50 ML IVPB SCH ×2 (08:26→21:08)
[2022-09-14] MEDS: Aspirin Chewable 81 MG TAB PER TUBE SCH (08:29)
[2022-09-14] MEDS: carBAMazepine SR 300 mg Capsule PO SCH ×3 (08:29→21:05)
[2022-09-14] MEDS: Hydrochlorothiazide 25 MG TAB PER TUBE SCH (08:29)
[2022-09-14] MEDS: busPIRone HCl 10 MG TAB PER TUBE SCH ×2 (08:29→21:05)
[2022-09-14] MEDS: Metoprolol Tartrate 50 MG TAB PER TUBE SCH ×2 (08:29→21:05)
[2022-09-14] MEDS: Heparin 5,000 UNITS/ML VIAL SC SCH ×2 (08:30→21:08)
[2022-09-14] MEDS: Famotidine/PF 20 mg/2ml Vial SLOW IVP SCH ×2 (08:30→21:06)
[2022-09-14 23:48] LABS: Anion Gap 13 mmol/L (10-20); BUN (Urea Nitrogen) 23 mg/dL (8.4-25.7); Calc. Creatinine Clearance 205 mL/min (70-130); Calcium 8.9 mg/dL (7.8-10.44); Carbon Dioxide 37 mmol/L (23-31); Chloride 107 mmol/L (98-107); Estimated GFR 103; Glucose 119 mg/dL (83-110); Potassium 3.5 mmol/L (3.5-5.1)
[2022-09-15 00:07] LABS: Sodium 153 mmol/L (136-145)
[2022-09-15] MEDS: Dextrose 5% in Water 1,000 ML IV SCH ×4 (02:13→21:25)
[2022-09-15 03:54] LABS: BUN (Urea Nitrogen) 21 mg/dL (8.4-25.7); Calc. Creatinine Clearance 209 mL/min (70-130); Calcium 8.6 mg/dL (7.8-10.44); Estimated GFR 103; Glucose 122 mg/dL (83-110)
[2022-09-15 04:03] LABS: Anion Gap 14 mmol/L (10-20); Carbon Dioxide 33 mmol/L (23-31); Chloride 107 mmol/L (98-107); Potassium 3.4 mmol/L (3.5-5.1)
[2022-09-15 04:07] LABS: Sodium 151 mmol/L (136-145)
[2022-09-15] MEDS: Piperacillin/Tazobactam 3.375 GM in Sodium Chloride 0.9% 100 ML IVPB SCH ×3 (05:21→20:58)
[2022-09-15] MEDS: Levothyroxine 150 MCG TAB PER TUBE SCH (06:37)
[2022-09-15] MEDS ORDERED: Potassium Chloride 20 MEQ TAB PO SCH ×2 (08:00→18:30)
[2022-09-15] MEDS: Aspirin Chewable 81 MG TAB PER TUBE SCH (09:14)
[2022-09-15] MEDS: busPIRone HCl 10 MG TAB PER TUBE SCH ×2 (09:14→20:58)
[2022-09-15] MEDS: Hydrochlorothiazide 25 MG TAB PER TUBE SCH (09:14)
[2022-09-15] MEDS: Scopolamine 1.5 mg/72 hour Patch TOP SCH (09:14)
[2022-09-15] MEDS: Fosphenytoin Sodium 100 MG in Sodium Chloride 0.9% 50 ML IVPB SCH ×2 (09:14→21:25)
[2022-09-15] MEDS: Metoprolol Tartrate 50 MG TAB PER TUBE SCH ×2 (09:14→20:59)
[2022-09-15] MEDS: carBAMazepine SR 300 mg Capsule PO SCH ×3 (09:15→20:58)
[2022-09-15] MEDS: Famotidine/PF 20 mg/2ml Vial SLOW IVP SCH ×2 (09:15→20:58)
[2022-09-15] MEDS: Heparin 5,000 UNITS/ML VIAL SC SCH ×2 (09:15→20:58)
[2022-09-15 13:52] LABS: BUN (Urea Nitrogen) 16 mg/dL (8.4-25.7); Calc. Creatinine Clearance 222 mL/min (70-130); Calcium 8.4 mg/dL (7.8-10.44); Estimated GFR 106; Glucose 117 mg/dL (83-110)
[2022-09-15 14:01] LABS: Anion Gap 16 mmol/L (10-20); Carbon Dioxide 32 mmol/L (23-31); Chloride 108 mmol/L (98-107); Potassium 3.3 mmol/L (3.5-5.1)
[2022-09-15 14:12] LABS: Sodium 153 mmol/L (136-145)
[2022-09-15 20:12] LABS: Hemoglobin 11.3 g/dL (14.0-18.0); Platelet Count 233 10x3/uL (130-400)
[2022-09-15 20:33] LABS: Anion Gap 13 mmol/L (10-20); BUN (Urea Nitrogen) 14 mg/dL (8.4-25.7); Calc. Creatinine Clearance 231 mL/min (70-130); Calcium 8.5 mg/dL (7.8-10.44); Carbon Dioxide 35 mmol/L (23-31); Chloride 110 mmol/L (98-107); Estimated GFR 107; Glucose 120 mg/dL (83-110); Potassium 3.6 mmol/L (3.5-5.1)
[2022-09-15 20:40] LABS: Sodium 154 mmol/L (136-145)
[2022-09-16] MEDS: Dextrose 5% in Water 1,000 ML IV SCH ×3 (01:30→08:45)
[2022-09-16] MEDS: Levothyroxine 150 MCG TAB PER TUBE SCH (05:58)
[2022-09-16] MEDS: Piperacillin/Tazobactam 3.375 GM in Sodium Chloride 0.9% 100 ML IVPB SCH ×3 (05:58→20:36)
[2022-09-16 07:06] LABS: Anion Gap 9 mmol/L (10-20); BUN (Urea Nitrogen) 11 mg/dL (8.4-25.7); Calc. Creatinine Clearance 238 mL/min (70-130); Calcium 8.5 mg/dL (7.8-10.44); Carbon Dioxide 36 mmol/L (23-31); Chloride 106 mmol/L (98-107); Estimated GFR 108; Glucose 111 mg/dL (83-110); Potassium 3.4 mmol/L (3.5-5.1); Sodium 148 mmol/L (136-145)
[2022-09-16] MEDS ORDERED: Potassium Bicarbonate/Cit Ac 20 MEQ TAB PO SCH ×2 (08:00→13:45)
[2022-09-16] MEDS: Fosphenytoin Sodium 100 MG in Sodium Chloride 0.9% 50 ML IVPB SCH (08:44)
[2022-09-16] MEDS: carBAMazepine SR 300 mg Capsule PO SCH ×3 (08:44→20:36)
[2022-09-16] MEDS: Heparin 5,000 UNITS/ML VIAL SC SCH ×2 (08:44→20:36)
[2022-09-16] MEDS: busPIRone HCl 10 MG TAB PER TUBE SCH ×2 (08:44→20:36)
[2022-09-16] MEDS: Metoprolol Tartrate 50 MG TAB PER TUBE SCH ×2 (08:44→20:36)
[2022-09-16] MEDS: Aspirin Chewable 81 MG TAB PER TUBE SCH (08:44)
[2022-09-16] MEDS: Famotidine/PF 20 mg/2ml Vial SLOW IVP SCH ×2 (08:44→20:36)
[2022-09-16 12:35] LABS: Anion Gap 11 mmol/L (10-20); BUN (Urea Nitrogen) 10 mg/dL (8.4-25.7); Calc. Creatinine Clearance 233 mL/min (70-130); Calcium 8.3 mg/dL (7.8-10.44); Carbon Dioxide 32 mmol/L (23-31); Chloride 104 mmol/L (98-107); Estimated GFR 107; Glucose 106 mg/dL (83-110); Potassium 3.5 mmol/L (3.5-5.1); Sodium 143 mmol/L (136-145)
[2022-09-17] MEDS: Levothyroxine 150 MCG TAB PER TUBE SCH (05:33)
[2022-09-17] MEDS: Piperacillin/Tazobactam 3.375 GM in Sodium Chloride 0.9% 100 ML IVPB SCH ×2 (05:33→14:34)
[2022-09-17 06:12] LABS: #Basophils 0.1 thou/uL (0.0-0.2); #Eosinphils 0.6 thou/uL (0.0-0.7); #Lymphocytes 1.5 thou/uL (1.20-3.40); #Monocytes 0.5 thou/uL (0.11-0.59); #Neutrophils 6.2 thou/uL (1.40-6.50); %Basophils 0.6 % (0.0-1.0); %Eosinophils 7.1 % (0.0-10.0); %Lymphocytes 16.7 % (21.0-51.0); %Neutrophils 69.5 % (42.0-75.0); Hemoglobin 10.9 g/dL (14.0-18.0); Mean Corpuscular HGB CONC 31.7 g/dL (32.0-36.0); Mean Corpuscular Hemoglobin 32.4 pg (27.0-31.0); Mean Platelet Volume 7.9 fL (7.4-10.4); Platelet Count 219 10x3/uL (130-400); RBC Distribution Width 13.1 % (11.5-14.5); Red Blood Cell (RBC) Count 3.36 mill/uL (4.70-6.10); White Blood Cell (WBC) Count 8.9 10x3/uL (4.8-10.8)
[2022-09-17 06:34] LABS: Anion Gap 8 mmol/L (10-20); BUN (Urea Nitrogen) 10 mg/dL (8.4-25.7); Calc. Creatinine Clearance 248 mL/min (70-130); Calcium 8.6 mg/dL (7.8-10.44); Carbon Dioxide 35 mmol/L (23-31); Chloride 104 mmol/L (98-107); Estimated GFR 109; Glucose 93 mg/dL (83-110); Potassium 3.3 mmol/L (3.5-5.1); Sodium 144 mmol/L (136-145)
[2022-09-17] MEDS ORDERED: Potassium Chloride 20 MEQ TAB PO SCH (08:00)
[2022-09-17] MEDS ORDERED: Potassium Bicarbonate/Cit Ac 20 MEQ TAB PER TUBE SCH (08:00)
[2022-09-17] MEDS: Aspirin Chewable 81 MG TAB PER TUBE SCH (08:48)
[2022-09-17] MEDS: Heparin 5,000 UNITS/ML VIAL SC SCH ×2 (08:48→20:24)
[2022-09-17] MEDS: busPIRone HCl 10 MG TAB PER TUBE SCH ×2 (08:48→20:23)
[2022-09-17] MEDS: Famotidine/PF 20 mg/2ml Vial SLOW IVP SCH (08:48)
[2022-09-17] MEDS: Metoprolol Tartrate 50 MG TAB PER TUBE SCH ×2 (08:48→20:24)
[2022-09-17] MEDS: carBAMazepine SR 300 mg Capsule PO SCH ×3 (08:48→20:23)
[2022-09-17] MEDS: Famotidine 20 MG TAB PO SCH (20:24)
[2022-09-17 22:08] LABS: Hemoglobin 12.6 g/dL (14.0-18.0); Platelet Count 255 10x3/uL (130-400)
[2022-09-18] MEDS: Levothyroxine 150 MCG TAB PER TUBE SCH (05:22)
[2022-09-18 07:52] VITALS: BP 162/76; TEMP 97.7
[2022-09-18] MEDS: Heparin 5,000 UNITS/ML VIAL SC SCH (08:40)
[2022-09-18] MEDS: Aspirin Chewable 81 MG TAB PER TUBE SCH (08:40)
[2022-09-18] MEDS: busPIRone HCl 10 MG TAB PER TUBE SCH (08:40)
[2022-09-18] MEDS: Famotidine 20 MG TAB PO SCH (08:40)
[2022-09-18] MEDS: Metoprolol Tartrate 50 MG TAB PER TUBE SCH (08:40)
[2022-09-18] MEDS: carBAMazepine SR 300 mg Capsule PO SCH ×2 (08:40→15:08)
[2022-09-18] MEDS: Scopolamine 1.5 mg/72 hour Patch TOP SCH (08:42)
== END 2022-09-18 17:55 | DRG 871 ==
LOC: ERS 16:38 → CCU 16:51 → T4-A 09-06 15:23
PROVIDERS: ADMIT Internal Medicine; ATTEND Hospitalist
PROC: 0BH18EZ Insertion of Endotracheal Airway into Trachea, Via Natural or Artificial Opening Endoscopic (ICD-10-PCS; principal; 2022-09-01)
PROC: 5A1945Z Respiratory Ventilation, 24-96 Consecutive Hours (ICD-10-PCS; 2022-09-01)
PROC: 3E033XZ Introduction of Vasopressor into Peripheral Vein, Percutaneous Approach (ICD-10-PCS; 2022-09-01)
PROC: 4A023N7 Measurement of Cardiac Sampling and Pressure, Left Heart, Percutaneous Approach (ICD-10-PCS; 2022-09-01)
PROC: B2111ZZ Fluoroscopy of Multiple Coronary Arteries using Low Osmolar Contrast (ICD-10-PCS; 2022-09-01)
PROC: B2151ZZ Fluoroscopy of Left Heart using Low Osmolar Contrast (ICD-10-PCS; 2022-09-01)
PROC: 02HV33Z Insertion of Infusion Device into Superior Vena Cava, Percutaneous Approach (ICD-10-PCS; 2022-09-01)
DX: A41.9 Sepsis, unspecified organism (principal); I21.A1 Myocardial infarction type 2; J18.9 Pneumonia, unspecified organism; J96.01 Acute respiratory failure with hypoxia; R57.0 Cardiogenic shock; R65.21 Severe sepsis with septic shock; J69.0 Pneumonitis due to inhalation of food and vomit; E87.1 Hypo-osmolality and hyponatremia; Z99.11 Dependence on respirator [ventilator] status; N39.0 Urinary tract infection, site not specified; E87.0 Hyperosmolality and hypernatremia; N17.9 Acute kidney failure, unspecified; K21.9 Gastro-esophageal reflux disease without esophagitis; E03.9 Hypothyroidism, unspecified; I10 Essential (primary) hypertension; F80.2 Mixed receptive-expressive language disorder; F41.9 Anxiety disorder, unspecified; E66.01 Morbid (severe) obesity due to excess calories; G40.909 Epilepsy, unspecified, not intractable, without status epilepticus; E87.6 Hypokalemia; N18.1 Chronic kidney disease, stage 1; Z93.3 Colostomy status; Z68.35 Body mass index [BMI] 35.0-35.9, adult; D63.1 Anemia in chronic kidney disease
CPT/HCPCS: 36415; 36416; 36556; 36600; 70450; 71045; 74018; 76770; 80048; 80053; 80202; 81001; 82533; 82553; 82805; 83605; 83690; 83735; 83880; 84100; 84145; 84443; 84484; 85014; 85018; 85025; 85049; 85610; 85730; 87086; 87811; 93005; 93010; 93306; 94002; 94003; 96365; 96366; 96368; 96375; 96376; J0360; J0692; J1630; J1644; J1940; J2001; J2060; J2250; J2270; J2543; J2704; J3010; J3370; J3475; J3480; J3490; J7030; J7050; J7070; P9047; Q2009; S0028; U0002